=== PATIENT | female | born 1970 | race Caucasian/White ===

== ENCOUNTER 2019-03-10 12:03 | Day surgery (SDC) | payer BC, OTHER ==
[~2019-03-10 12:03] MED LIST: Betamethasone Acetate/Betamethasone Sod Phosphate 30 MG/5 ML MDV EPIDUR ONE; Iopamidol 200-M 10 ML vial ITHECAL ONE; Lidocaine 2% 5 ML SDV INJECT ONE; Ropivacaine 0.5% 5 MG/ML 30 ML SDV INJECT ONE
--- NOTE | 2019-03-10 20:01 | OR ---
SURGEON: Melba Randolph D.O. DATE OF PROCEDURE: 03/10/2019 PRIMARY SURGEON: Melba Randolph D.O. COOK VEGETABLE: OR staff present: 1. Verna Hyman RN. 2. Verna Bonds RN. 3. Chloé Abbasi RN. WOUND CLASS: I. PREOPERATIVE DIAGNOSES: 1. L5-S1 degenerative disk disease. 2. L5-S1 right lower extremity radiculopathy. 3. Chronic low back pain. 4. Lumbar facet arthropathy. 5. L2-3 degenerative disk disease. POSTOPERATIVE DIAGNOSES: 1. L5-S1 degenerative disk disease. 2. L5-S1 right lower extremity radiculopathy. 3. Chronic low back pain. 4. Lumbar facet arthropathy. 5. L2-3 degenerative disk disease. PROCEDURES PERFORMED: 1. Right transforaminal epidural steroid injection at S1. 2. Fluoroscopic guidance for needle placement. 3. Local with oral Valium for sedation. SCREENING QUESTIONS: The patient answered "no" to all of the following questions: 1. Are you allergic to iodine, Betadine or latex? 2. Do you have a bleeding disorder? 3. Do you have any joint replacements, heart valve replacements, or a pacemaker? 4. Are you allergic to anti-inflammatories or blood thinners? 5. Do you have any current local or systemic infections? DESCRIPTION OF PROCEDURE: The patient had the procedure thoroughly explained including risks, benefits and alternatives. Consent was signed in my clinic indicating understanding and willingness to proceed. The patient presented to [facility] where the patient was escorted to the dressing room to disrobe and change into a hospital gown. Preoperative vital signs were taken and stable. The patient reported that Valium was taken prior to the procedure. The patient was brought to the procedure room and placed in the prone position on the table. A pillow was placed under the abdomen in order to flatten the lumbar lordosis. The back was prepped with ChloraPrep and sterilely draped. All personnel in the operating room were dressed in appropriate attire including surgical scrubs, head and shoe covers. This was to ensure sterility while in the treatment room. During the time fluoroscopy was in use, all personnel in the operating room wore lead barrios with thyroid collars. Sterile technique was used during the procedure. The fluoroscope was placed for the S1 transforaminal epidural steroid injection. There was no sign of infection at the skin site for needle insertion. The skin was anesthetized with 2% lidocaine with a 27 gauge 1-1/2 inch needle. Then a 22 gauge 3-1/2 inch spinal needle, advanced to the S1. Under direct fluoroscopic guidance needle position was verified in three views; AP, oblique and lateral, with 0.2 cubic centimeters increments of Isovue-200 dye. No intravascular flow pattern was observed under live fluoroscopy. Then 12 milligrams of Celestone and local was slowly injected after negative aspiration of heme, cerebrospinal fluid and no paresthesias were noted. The needle was cleared prior to removal from the skin. No adverse reactions were noted. The patient was brought to the recovery room awake and in good condition by my staff. The patient was monitored and discharge instructions were given after a brief stay in the recovery area. Both oral and written discharge and follow up instructions were given. The patient will follow up in the clinic in 3-4 weeks post procedure to evaluate the efficacy. The patient verbalized understanding including understanding of those signs and symptoms that would require emergency care and knows how to contact the office if there are any problems or questions in the meantime. PREOPERATIVE PAIN: 5/10. POSTOPERATIVE PAIN: 2/10. FOLLOWUP: Follow up in the Pain Clinic in 3 weeks. HOGMITZY / BEN /[id number] JUVE
== END 2019-03-10 14:22 ==
LOC: MW.SDS 12:03
PROVIDERS: ATTEND Anesthesiology
DX: G89.29 Other chronic pain (principal); M51.17 Intervertebral disc disorders with radiculopathy, lumbosacral region; M51.36 Other intervertebral disc degeneration, lumbar region; M47.816 Spondylosis without myelopathy or radiculopathy, lumbar region
CPT/HCPCS: 64483; J0702; 62323

== ENCOUNTER 2019-05-24 16:36 | Emergency (ER) | payer OTHER ==
[2019-05-24] MEDS ORDERED: Ketorolac 60 MG/2 ML SDV IM ONE (17:08)
[2019-05-24] MEDS ORDERED: Cyclobenzaprine 10 MG Tab PO ONE (17:34)
[2019-05-24] MEDS ORDERED: Acetaminophen 325 MG Tab PO ONE (17:34)
--- NOTE | 2019-05-24 17:38 | CT ---
CT cervical spine Technique: Multiple axial sections were obtained from above's C1 inferiorly to the top of T1. Reconstructed coronal and sagittal images were obtained. Findings: Mild scattered disc space narrowing is noted with mild scattered posterior and anterior osteophytes. Vertebral bodies and posterior arches are intact. No fracture is seen. Neural foramina are felt to be fairly well patent. No central canal stenosis is seen. No abnormal subluxation is seen. Impression: 1. Mild degenerative change. 2. Nothing acute is appreciated on CT study of the cervical spine. Diagnostic code #2 Study was dictated in MDT
--- NOTE | 2019-05-24 17:45 | CT ---
CT lumbar spine Technique: Multiple axial sections were obtained through the lumbar spine from above the T10-T11 disc inferiorly through the L5-S1 disc. Reconstructed sagittal and coronal images were obtained. Findings: Disc space narrowing and vacuum phenomena is seen within the T10-T11 and T11-T12 discs. Mild disc space narrowing is noted at L1-L2 anteriorly. Other disc spaces are maintained. Scattered endplate osteophytes are seen. Degenerative apophyseal change is noted at L4-L5 with vacuum phenomena. Vacuum phenomena also noted within the right apophyseal joint at L5-S1. Vacuum phenomena is seen within the L5-S1 disc. Very slight retrolisthesis noted at L1-L2. No acute fracture is seen. No abnormal subluxation is seen. Impression: 1. Mild degenerative change. 2. No acute fracture or abnormal subluxation is seen on CT study of the lumbar spine. Diagnostic code #2 Study was dictated in MDT
--- NOTE | 2019-05-24 18:42 | CR ---
Left knee: AP and lateral views of the left knee were obtained. Comparison: No prior right knee exam Medial hemiarthroplasty is noted. Small osteophyte is noted off the lateral tibial margin. No abnormal lucency is seen around the prosthesis. Small osteophyte off the superior patella is noted. No joint effusion is seen. Nothing acute is appreciated. Impression: 1. Medial hemiarthroplasty and minimal degenerative change. 2. Nothing acute is appreciated on 2 view right knee exam. Diagnostic code #2 Study was dictated in MDT
[2019-05-24] MEDS ORDERED: Diazepam 5 MG Tab PO ONE (18:52)
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
== END 2019-05-24 19:10 | disposition home or self-care (01) ==
LOC: MW.ED 16:36
DX: S16.1XXA Strain of muscle, fascia and tendon at neck level, initial encounter (principal); S30.0XXA Contusion of lower back and pelvis, initial encounter; Z87.891 Personal history of nicotine dependence; Z79.899 Other long term (current) drug therapy; Z88.5 Allergy status to narcotic agent; V43.52XA Car driver injured in collision with other type car in traffic accident, initial encounter
CPT/HCPCS: 72125; 72125-26; 72131; 72131-26; 73560-26-RT; 73560-RT; 99283; 99284-25; A9270-GY